=== PATIENT | female | born 1960 | race African-American/Black ===

== ENCOUNTER 2022-08-27 19:52 | Inpatient (IN) | payer MEDICAID, OTHER ==
[~2022-08-27] VITALS: Ht 167.6 cm; Wt 107.0 kg
[2022-08-27 21:57] LABS: HEMATOCRIT. 34.9 % (36.0-48.0); HEMOGLOBIN. 10.5 g/dL (12.0-16.0); MEAN CORPUSCULAR HEMOGLOBIN 27.3 pg (28.0-32.0); MEAN CORPUSCULAR VOLUME 91.1 fL (81.0-99.0); MEAN PLATELET VOLUME 8.5 fl (7.4-10.4); PLATELET 320 x1000/uL (130-400); RED BLOOD CELL COUNT 3.83 mill/uL (4.2-5.4); RED CELL DISTRIBUTION WIDTH 25.6 % (11.6-14.6)
[2022-08-27 22:05] LABS: CHLORIDE 107 mEq/L (98-107)
[2022-08-27] MEDS ORDERED: VANCOMYCIN 1G PREMIX 200 ML IV SCH (22:45)
[2022-08-27] MEDS ORDERED: SODIUM CHLORIDE 0.9% 1,000 ML IV ONE (22:45)
[2022-08-27] MEDS ORDERED: CEFTRIAXONE 1GM PREMIX 50 ML IV ONE (22:45)
[2022-08-28 02:37] LABS: PLATELET ESTIMATE NORMAL
[2022-08-28 04:00] VITALS: BP 105/60
[2022-08-28] MEDS ORDERED: ONDANSETRON HCL 4MG/2ML INJ IV PRN (05:00)
[2022-08-28] MEDS ORDERED: VANCOMYCIN 750MG PREMIX 150 ML IV SCH (06:00)
[2022-08-28 08:00] VITALS: BP 97/53
[2022-08-28] MEDS: PANTOPRAZOLE SODIUM 40 MG/VIAL IV SCH (08:15)
[2022-08-28] MEDS: PIPERACILLIN/TAZOBACTAM 3.375 G in DEXTROSE 5% WATER 50 ML IV SCH ×3 (08:15→21:36)
[2022-08-28 10:05] LABS: HEMATOCRIT. 30.6 % (36.0-48.0); HEMOGLOBIN. 9.5 g/dL (12.0-16.0); MEAN CORPUSCULAR HEMOGLOBIN 27.8 pg (28.0-32.0); MEAN CORPUSCULAR VOLUME 89.8 fL (81.0-99.0); MEAN PLATELET VOLUME 8.4 fl (7.4-10.4); PLATELET 265 x1000/uL (130-400); RED BLOOD CELL COUNT 3.41 mill/uL (4.2-5.4); RED CELL DISTRIBUTION WIDTH 25.5 % (11.6-14.6)
[2022-08-28 10:19] LABS: CHLORIDE 106 mEq/L (98-107)
[2022-08-28 12:00] VITALS: BP 99/50
[2022-08-28] MEDS ORDERED: MENTHOL/LANOLIN/CALAMINE/ZN OX OINT 71GM TOP PRN (12:00)
[2022-08-28] MEDS: POTASSIUM CHLORIDE INJ 40 MEQ in DEXT 5% WATER 250 ML IV NR ×2 (12:56→17:02)
[2022-08-28 15:04] LABS: NUCLEATED RED BLOOD CELLS 1 /100 WBC
[2022-08-28 15:05] LABS: PLATELET ESTIMATE NORMAL
[2022-08-28] MEDS ORDERED: FUROSEMIDE 40MG/4ML VIAL IVP NR (15:30)
[2022-08-28 16:00] VITALS: BP 134/81
[2022-08-28] MEDS ORDERED: ENOXAPARIN 40MG/0.4ML SYR SUBCUT SCH (16:00)
[2022-08-28] MEDS: VANCOMYCIN 750MG PREMIX 150 ML IV SCH (16:25)
[2022-08-28] MEDS: MORPHINE SULFATE 2 MG/ML CPJ (NOT FOR IM USE) IV PRN ×2 (16:35→21:35)
[2022-08-28] MEDS ORDERED: POTASSIUM CHLORIDE 20MEQ TABLET SR PO NR (17:15)
[2022-08-28 18:51] LABS: TOTAL IRON BINDING CAPACITY 115 ug/dL (250-450)
[2022-08-28 19:28] LABS: FERRITIN 4405 ng/mL (10-291)
[2022-08-28 19:43] LABS: VITAMIN B12 SERUM >2000 pg/mL pg/mL (211-911)
[2022-08-28 20:00] VITALS: BP 99/59
[2022-08-28 20:25] LABS: CLARITY URINE CLEAR (CLEAR); COLOR URINE DARK YELLOW (YELLOW); KETONES URINE NEGATIVE (NEGATIVE); LEUKOCYTE ESTERASE URINE NEGATIVE (NEGATIVE); NITRITE URINE NEGATIVE (NEGATIVE); OCCULT BLOOD URINE NEGATIVE (NEGATIVE); PH URINE 5.5 (4.5-8.0); PROTEIN URINE NEGATIVE (NEGATIVE); SPECIFIC GRAVITY URINE 1.017 (1.005-1.030); UROBILINOGEN URINE 0.2 E.U./dL (0.2-1.0)
[2022-08-28] MEDS: ALBUMIN HUMAN 25GM/100ML (25%) IV SCH (20:44)
[2022-08-28] MEDS ORDERED: IOHEXOL-300 100 ML BOTTLE ONE (22:09)
[2022-08-29] VITALS: BP 101/66
[2022-08-29 04:00] VITALS: BP 101/59
[2022-08-29] MEDS: VANCOMYCIN 750MG PREMIX 150 ML IV SCH (05:22)
[2022-08-29] MEDS: PIPERACILLIN/TAZOBACTAM 3.375 G in DEXTROSE 5% WATER 50 ML IV SCH ×3 (06:04→22:26)
[2022-08-29 08:00] VITALS: BP 97/55
[2022-08-29] MEDS: PANTOPRAZOLE SODIUM 40 MG/VIAL IV SCH (10:03)
[2022-08-29] MEDS: MORPHINE SULFATE 2 MG/ML CPJ (NOT FOR IM USE) IV PRN (10:07)
[2022-08-29 12:00] VITALS: BP 100/55
[2022-08-29 16:00] VITALS: BP 92/56
[2022-08-29 16:37] LABS: HEMATOCRIT. 29.6 % (36.0-48.0); MEAN CORPUSCULAR HEMOGLOBIN 27.3 pg (28.0-32.0); MEAN CORPUSCULAR VOLUME 89.9 fL (81.0-99.0); MEAN PLATELET VOLUME 8.5 fl (7.4-10.4); PLATELET 220 x1000/uL (130-400); RED BLOOD CELL COUNT 3.29 mill/uL (4.2-5.4); RED CELL DISTRIBUTION WIDTH 25.3 % (11.6-14.6)
[2022-08-29 16:44] LABS: INR 3.1; PROTHROMBIN TIME 30.8 sec (9.6-11.0)
[2022-08-29] MEDS ORDERED: MORPHINE SULFATE 2 MG/ML CPJ (NOT FOR IM USE) IV PRN (16:45)
[2022-08-29 16:57] LABS: CHLORIDE 107 mEq/L (98-107)
[2022-08-29 19:16] LABS: PLATELET ESTIMATE NORMAL
[2022-08-29 20:00] VITALS: BP 102/54
[2022-08-29] MEDS: ALBUMIN HUMAN 25GM/100ML (25%) IV SCH (20:46)
[2022-08-30] VITALS (11 sets, daily range): BP systolic 97–110; BP diastolic 48–70
[2022-08-30 02:59] LABS: HEMATOCRIT. 30.8 % (36.0-48.0); HEMOGLOBIN. 9.3 g/dL (12.0-16.0); MEAN CORPUSCULAR HEMOGLOBIN 27.7 pg (28.0-32.0); MEAN PLATELET VOLUME 8.5 fl (7.4-10.4); PLATELET 191 x1000/uL (130-400); RED BLOOD CELL COUNT 3.35 mill/uL (4.2-5.4); RED CELL DISTRIBUTION WIDTH 25.9 % (11.6-14.6)
[2022-08-30 03:10] LABS: CHLORIDE 108 mEq/L (98-107); INR 2.5; PROTHROMBIN TIME 25.1 sec (9.6-11.0)
[2022-08-30] MEDS: PIPERACILLIN/TAZOBACTAM 3.375 G in DEXTROSE 5% WATER 50 ML IV SCH ×3 (06:13→21:54)
[2022-08-30] MEDS: FOLIC ACID 1MG TABLET PO SCH (10:00)
[2022-08-30] MEDS ORDERED: NALOXONE HCL 0.4MG/ML VIAL IV PRN (12:00)
[2022-08-30 13:48] LABS: PLATELET ESTIMATE NORMAL
[2022-08-30] MEDS: PANTOPRAZOLE SODIUM 40 MG/VIAL IV SCH (16:28)
[2022-08-30] MEDS: FUROSEMIDE 40MG/4ML VIAL IVP SCH (16:28)
[2022-08-30 16:55] LABS: INR 2.4; PROTHROMBIN TIME 24.9 sec (9.6-11.0)
[2022-08-30] MEDS: ALBUMIN HUMAN 25GM/100ML (25%) IV SCH (20:00)
[2022-08-31] VITALS (12 sets, daily range): BP systolic 95–115; BP diastolic 49–80
[2022-08-31 08:25] LABS: HEMATOCRIT. 26.8 % (36.0-48.0); MEAN CORPUSCULAR HEMOGLOBIN 27.4 pg (28.0-32.0); MEAN CORPUSCULAR VOLUME 91.4 fL (81.0-99.0); MEAN PLATELET VOLUME 8.7 fl (7.4-10.4); PLATELET 165 x1000/uL (130-400); RED BLOOD CELL COUNT 2.93 mill/uL (4.2-5.4); RED CELL DISTRIBUTION WIDTH 24.6 % (11.6-14.6)
[2022-08-31 09:12] LABS: INR 1.9; PROTHROMBIN TIME 19.8 sec (9.6-11.0)
[2022-08-31 09:13] LABS: CHLORIDE 108 mEq/L (98-107)
[2022-08-31] MEDS: FUROSEMIDE 40MG/4ML VIAL IVP SCH (09:25)
[2022-08-31] MEDS: PANTOPRAZOLE SODIUM 40 MG/VIAL IV SCH (09:25)
[2022-08-31] MEDS: FOLIC ACID 1MG TABLET PO SCH (09:25)
[2022-08-31 09:35] LABS: PLATELET ESTIMATE NORMAL
[2022-08-31] MEDS ORDERED: IOHEXOL-300 50 ML BOTTLE IV ONE ×2 (11:16→12:39)
[2022-08-31] MEDS ORDERED: LIDOCAINE HCL 1% 10 MG/ML 10ML VIAL ONE ×2 (11:16→11:23)
[2022-08-31] MEDS ORDERED: DEXAMETHASONE 4MG/ML 1ML VIAL ONE (11:23)
[2022-08-31] MEDS ORDERED: MIDAZOLAM HCL 2 MG/2 ML VIAL ONE (11:24)
[2022-08-31] MEDS ORDERED: PROPOFOL 200MG/20ML VIAL IV ONE (11:24)
[2022-08-31] MEDS ORDERED: FENTANYL CITRATE/PF 50MCG/ML 2ML VIAL ONE (11:24)
[2022-08-31] MEDS ORDERED: LABETALOL 5MG/ML SYR 20 MG/4 ML SYRINGE IV PRN ×2 (11:45→12:45)
[2022-08-31] MEDS ORDERED: HYDROMORPHONE HCL/PF 2MG/ML CPJ IV PRN ×2 (11:45→12:45)
[2022-08-31] MEDS ORDERED: MEPERIDINE HCL/PF 25MG/ML CPJ IV PRN ×2 (11:45→12:45)
[2022-08-31] MEDS ORDERED: ONDANSETRON HCL 4MG/2ML INJ IV PRN ×2 (11:45→12:45)
[2022-08-31] MEDS ORDERED: ROCURONIUM BROMIDE 10MG/ML VIAL 5ML IV ONE (12:07)
[2022-08-31] MEDS ORDERED: GLYCOPYRROLATE 0.2 MG/ML 2ML VIAL ONE ×2 (12:50)
[2022-08-31] MEDS ORDERED: NEOSTIGMINE METHYLSULFATE 1MG/ML 10 ML VIAL ONE (12:50)
[2022-08-31] MEDS ORDERED: LABETALOL HCL 5MG/ML VIAL 20ML IV ONE (13:13)
[2022-08-31 15:36] LABS: PARTIAL THROMBOPLASTIN TIME 36.6 sec (23.4-31.0); PROTHROMBIN TIME 20.3 sec (9.6-11.0)
[2022-08-31] MEDS: ENOXAPARIN 30MG/0.3ML SYR SUBCUT SCH (17:52)
[2022-08-31] MEDS: FUROSEMIDE 40MG/4ML VIAL IV SCH (17:56)
[2022-08-31] MEDS: PIPERACILLIN/TAZOBACTAM 3.375 G in DEXTROSE 5% WATER 50 ML IV SCH (22:42)
[2022-09-01] VITALS: BP 98/50
[2022-09-01 04:00] VITALS: BP 111/59
[2022-09-01] MEDS: PIPERACILLIN/TAZOBACTAM 3.375 G in DEXTROSE 5% WATER 50 ML IV SCH ×3 (06:30→22:03)
[2022-09-01] MEDS: ENOXAPARIN 30MG/0.3ML SYR SUBCUT SCH ×2 (06:31→17:37)
[2022-09-01] MEDS: MORPHINE SULFATE 2 MG/ML CPJ (NOT FOR IM USE) IV PRN ×2 (06:44→19:44)
[2022-09-01 07:22] LABS: HEMATOCRIT. 32.2 % (36.0-48.0); MEAN CORPUSCULAR HEMOGLOBIN 28.2 pg (28.0-32.0); MEAN CORPUSCULAR VOLUME 90.7 fL (81.0-99.0); MEAN PLATELET VOLUME 9.1 fl (7.4-10.4); PLATELET 195 x1000/uL (130-400); RED BLOOD CELL COUNT 3.55 mill/uL (4.2-5.4)
[2022-09-01 08:00] VITALS: BP 109/53
[2022-09-01 08:30] LABS: CHLORIDE 107 mEq/L (98-107)
[2022-09-01] MEDS: PANTOPRAZOLE SODIUM 40 MG/VIAL IV SCH (09:23)
[2022-09-01] MEDS: FUROSEMIDE 40MG/4ML VIAL IV SCH ×2 (09:23→17:37)
[2022-09-01] MEDS: FOLIC ACID 1MG TABLET PO SCH (09:23)
[2022-09-01] MEDS ORDERED: POTASSIUM CHLORIDE 20MEQ/PACKET PO SCH (10:30)
[2022-09-01 12:00] VITALS: BP 103/62
[2022-09-01 16:00] VITALS: BP 108/55
[2022-09-01 17:38] LABS: PLATELET ESTIMATE NORMAL
[2022-09-01 20:00] VITALS: BP 102/57
[2022-09-02] VITALS: BP 102/62
[2022-09-02 04:00] VITALS: BP 114/62
[2022-09-02] MEDS: PIPERACILLIN/TAZOBACTAM 3.375 G in DEXTROSE 5% WATER 50 ML IV SCH ×2 (05:16→15:07)
[2022-09-02] MEDS: ENOXAPARIN 30MG/0.3ML SYR SUBCUT SCH ×2 (05:16→16:50)
[2022-09-02 07:06] LABS: HEMATOCRIT. 31.5 % (36.0-48.0); MEAN CORPUSCULAR HEMOGLOBIN 28.3 pg (28.0-32.0); MEAN CORPUSCULAR VOLUME 89.2 fL (81.0-99.0); MEAN PLATELET VOLUME 9.1 fl (7.4-10.4); PLATELET 181 x1000/uL (130-400); RED BLOOD CELL COUNT 3.53 mill/uL (4.2-5.4); RED CELL DISTRIBUTION WIDTH 23.8 % (11.6-14.6)
[2022-09-02 07:46] LABS: CHLORIDE 108 mEq/L (98-107)
[2022-09-02 08:00] VITALS: BP 97/52
[2022-09-02] MEDS: FOLIC ACID 1MG TABLET PO SCH (09:02)
[2022-09-02] MEDS: PANTOPRAZOLE SODIUM 40 MG/VIAL IV SCH (09:02)
[2022-09-02] MEDS: HYDROCODONE/ACETAMINOPHEN 10/325MG TABLET PO PRN (09:02)
[2022-09-02] MEDS: FUROSEMIDE 40MG/4ML VIAL IV SCH ×2 (09:02→16:50)
[2022-09-02 09:53] LABS: NUCLEATED RED BLOOD CELLS 1 /100 WBC; PLATELET ESTIMATE NORMAL
[2022-09-02 12:00] VITALS: BP 108/61
[2022-09-02 16:00] VITALS: BP 110/63
[2022-09-02] MEDS: MEROPENEM-0.9% SODIUM CHLORIDE 100 ML IV SCH (19:56)
[2022-09-02 20:00] VITALS: BP 90/57
[2022-09-03] VITALS: BP 95/51
[2022-09-03] MEDS: MEROPENEM-0.9% SODIUM CHLORIDE 100 ML IV SCH ×3 (03:05→18:20)
[2022-09-03] MEDS: HYDROCODONE/ACETAMINOPHEN 10/325MG TABLET PO PRN (03:35)
[2022-09-03 04:00] VITALS: BP 102/60
[2022-09-03] MEDS: ENOXAPARIN 30MG/0.3ML SYR SUBCUT SCH ×2 (05:19→17:51)
[2022-09-03 06:44] LABS: HEMATOCRIT. 32.7 % (36.0-48.0); HEMOGLOBIN. 10.2 g/dL (12.0-16.0); MEAN CORPUSCULAR VOLUME 89.8 fL (81.0-99.0); MEAN PLATELET VOLUME 9.2 fl (7.4-10.4); PLATELET 170 x1000/uL (130-400); RED BLOOD CELL COUNT 3.65 mill/uL (4.2-5.4); RED CELL DISTRIBUTION WIDTH 23.7 % (11.6-14.6)
[2022-09-03 06:46] LABS: INR 2.6; PROTHROMBIN TIME 26.6 sec (9.6-11.0)
[2022-09-03 07:09] LABS: CHLORIDE 107 mEq/L (98-107)
[2022-09-03 08:00] VITALS: BP 98/48
[2022-09-03] MEDS: PANTOPRAZOLE SODIUM 40 MG/VIAL IV SCH (08:42)
[2022-09-03] MEDS: FOLIC ACID 1MG TABLET PO SCH (08:42)
[2022-09-03] MEDS: FUROSEMIDE 40MG/4ML VIAL IV SCH ×2 (08:42→17:50)
[2022-09-03] MEDS ORDERED: POTASSIUM CHLORIDE 20MEQ TABLET SR PO NR (09:30)
[2022-09-03 11:44] LABS: PLATELET ESTIMATE NORMAL
[2022-09-03 12:00] VITALS: BP 97/49
[2022-09-03 16:00] VITALS: BP 98/53
[2022-09-03 20:00] VITALS: BP 93/52
[2022-09-04] VITALS: BP 108/66
[2022-09-04] MEDS: MEROPENEM-0.9% SODIUM CHLORIDE 100 ML IV SCH ×2 (02:25→11:21)
[2022-09-04 04:00] VITALS: BP 99/51
[2022-09-04] MEDS: ENOXAPARIN 30MG/0.3ML SYR SUBCUT SCH ×2 (06:29→17:30)
[2022-09-04 07:20] LABS: HEMATOCRIT. 35.4 % (36.0-48.0); HEMOGLOBIN. 10.7 g/dL (12.0-16.0); MEAN CORPUSCULAR HEMOGLOBIN 28.6 pg (28.0-32.0); MEAN CORPUSCULAR VOLUME 94.7 fL (81.0-99.0); MEAN PLATELET VOLUME 9.6 fl (7.4-10.4); PLATELET 160 x1000/uL (130-400); RED BLOOD CELL COUNT 3.74 mill/uL (4.2-5.4); RED CELL DISTRIBUTION WIDTH 24.5 % (11.6-14.6)
[2022-09-04 08:00] VITALS: BP 110/61
[2022-09-04 09:49] LABS: PLATELET ESTIMATE NORMAL
[2022-09-04] MEDS: PANTOPRAZOLE SODIUM 40 MG/VIAL IV SCH (09:50)
[2022-09-04] MEDS: FUROSEMIDE 40MG/4ML VIAL IV SCH ×2 (09:50→17:28)
[2022-09-04] MEDS: FOLIC ACID 1MG TABLET PO SCH (09:50)
[2022-09-04 10:12] LABS: CHLORIDE 108 mEq/L (98-107)
[2022-09-04 12:00] VITALS: BP 95/60
[2022-09-04 16:00] VITALS: BP 102/57
[2022-09-05] VITALS: BP 103/59
[2022-09-05] MEDS: MEROPENEM-0.9% SODIUM CHLORIDE 100 ML IV SCH ×2 (02:31→10:24)
[2022-09-05] MEDS: ENOXAPARIN 30MG/0.3ML SYR SUBCUT SCH ×2 (06:36→18:25)
[2022-09-05 07:10] LABS: HEMOGLOBIN. 9.9 g/dL (12.0-16.0); MEAN CORPUSCULAR HEMOGLOBIN 27.9 pg (28.0-32.0); MEAN CORPUSCULAR VOLUME 90.8 fL (81.0-99.0); MEAN PLATELET VOLUME 9.5 fl (7.4-10.4); PLATELET 179 x1000/uL (130-400); RED BLOOD CELL COUNT 3.53 mill/uL (4.2-5.4); RED CELL DISTRIBUTION WIDTH 24.3 % (11.6-14.6)
[2022-09-05 07:17] LABS: CHLORIDE 107 mEq/L (98-107)
[2022-09-05 08:00] VITALS: BP 110/53
[2022-09-05] MEDS ORDERED: POTASSIUM CHLORIDE 20MEQ TABLET SR PO SCH (10:15)
[2022-09-05] MEDS: FUROSEMIDE 40MG/4ML VIAL IV SCH (10:21)
[2022-09-05] MEDS: FOLIC ACID 1MG TABLET PO SCH (10:23)
[2022-09-05] MEDS: PANTOPRAZOLE SODIUM 40 MG/VIAL IV SCH (10:24)
[2022-09-05] MEDS ORDERED: MEROPENEM 1,000 MG in SODIUM CHLORIDE 0.9% 50 ML IV SCH (10:45)
[2022-09-05 12:00] VITALS: BP 99/62
[2022-09-05] MEDS ORDERED: LACTULOSE 20G/30ML UDC PO PRN (12:45)
[2022-09-05 12:55] LABS: PLATELET ESTIMATE NORMAL
[2022-09-05] MEDS: DOCUSATE SODIUM 250MG CAPSULE PO SCH (13:38)
[2022-09-05 16:00] VITALS: BP 112/59
[2022-09-05] MEDS ORDERED: NALOXONE HCL 0.4MG/ML VIAL IV PRN (18:15)
[2022-09-05] MEDS: MEROPENEM-0.9% SODIUM CHLORIDE 50 ML IV SCH (18:26)
[2022-09-05 20:00] VITALS: BP 104/59
[2022-09-06] VITALS: BP 107/63
[2022-09-06] MEDS: MEROPENEM-0.9% SODIUM CHLORIDE 50 ML IV SCH ×3 (02:43→17:53)
[2022-09-06 04:00] VITALS: BP 110/53
[2022-09-06] MEDS: ENOXAPARIN 30MG/0.3ML SYR SUBCUT SCH ×2 (06:00→17:53)
[2022-09-06 07:01] LABS: HEMATOCRIT. 33.1 % (36.0-48.0); HEMOGLOBIN. 10.5 g/dL (12.0-16.0); MEAN CORPUSCULAR HEMOGLOBIN 28.3 pg (28.0-32.0); MEAN CORPUSCULAR VOLUME 89.1 fL (81.0-99.0); MEAN PLATELET VOLUME 9.5 fl (7.4-10.4); PLATELET 182 x1000/uL (130-400); RED BLOOD CELL COUNT 3.71 mill/uL (4.2-5.4); RED CELL DISTRIBUTION WIDTH 24.2 % (11.6-14.6)
[2022-09-06 07:06] LABS: INR 2.5; PROTHROMBIN TIME 25.3 sec (9.6-11.0)
[2022-09-06 07:24] LABS: CHLORIDE 108 mEq/L (98-107)
[2022-09-06] MEDS: HYDROCODONE/ACETAMINOPHEN 5/325MG TABLET PO PRN ×2 (07:41→22:14)
[2022-09-06 08:00] VITALS: BP 97/50
[2022-09-06] MEDS: PANTOPRAZOLE SODIUM 40 MG/VIAL IV SCH (09:50)
[2022-09-06] MEDS: FOLIC ACID 1MG TABLET PO SCH (09:50)
[2022-09-06] MEDS: FUROSEMIDE 40MG TABLET PO SCH (09:50)
[2022-09-06] MEDS: DOCUSATE SODIUM 250MG CAPSULE PO SCH (09:50)
[2022-09-06] MEDS ORDERED: POTASSIUM CHLORIDE 20MEQ TABLET SR PO NR (11:30)
[2022-09-06 11:56] VITALS: BP 96/54
[2022-09-06 16:00] VITALS: BP 102/61
[2022-09-06 20:00] VITALS: BP 106/64
[2022-09-06 21:12] LABS: PLATELET ESTIMATE NORMAL
[2022-09-07] VITALS: BP 108/68
[2022-09-07] MEDS: MEROPENEM-0.9% SODIUM CHLORIDE 50 ML IV SCH ×2 (02:51→10:19)
[2022-09-07 04:00] VITALS: BP 108/62
[2022-09-07 07:17] LABS: HEMATOCRIT. 40.2 % (36.0-48.0); HEMOGLOBIN. 12.5 g/dL (12.0-16.0); MEAN CORPUSCULAR HEMOGLOBIN 28.5 pg (28.0-32.0); MEAN CORPUSCULAR VOLUME 91.6 fL (81.0-99.0); MEAN PLATELET VOLUME 10.1 fl (7.4-10.4); PLATELET 180 x1000/uL (130-400); RED BLOOD CELL COUNT 4.39 mill/uL (4.2-5.4); RED CELL DISTRIBUTION WIDTH 24.7 % (11.6-14.6)
[2022-09-07 08:00] VITALS: BP 111/57
[2022-09-07] MEDS: DOCUSATE SODIUM 250MG CAPSULE PO SCH (09:00)
[2022-09-07 09:23] LABS: CHLORIDE 104 mEq/L (98-107)
[2022-09-07] MEDS: FOLIC ACID 1MG TABLET PO SCH (10:18)
[2022-09-07] MEDS: FUROSEMIDE 40MG TABLET PO SCH (10:18)
[2022-09-07] MEDS: PHENYLEPHRINE/SHK LV/MO/PET RECTAL OINTMENT 57GM PR SCH ×3 (10:19→12:00)
[2022-09-07] MEDS: PANTOPRAZOLE SODIUM 40 MG/VIAL IV SCH (10:19)
[2022-09-07 10:42] LABS: PROTHROMBIN TIME 30.5 sec (9.6-11.0)
[2022-09-07 12:00] VITALS: BP 103/50
[2022-09-07 12:49] VITALS: BP 103/57
[2022-09-07] MEDS: HYDROCODONE/ACETAMINOPHEN 5/325MG TABLET PO PRN (13:10)
[2022-09-07 20:03] LABS: PLATELET ESTIMATE NORMAL
== END 2022-09-07 15:35 | DRG 720 ==
LOC: ER 19:52 → 7EST 08-28 01:55 → EDBEDREQTM 08-28 02:28 → EDBEDREQ 08-28 02:28 → ENRESERV 08-28 03:17 → ER 08-28 03:33 → 7WST 08-28 04:11 → 6EST 09-03 15:00
PROVIDERS: ADMIT Internal Medicine; ATTEND Internal Medicine
PROC: 30233K1 Transfusion of Nonautologous Frozen Plasma into Peripheral Vein, Percutaneous Approach (ICD-10-PCS; 2022-08-30)
PROC: BF101ZZ Fluoroscopy of Bile Ducts using Low Osmolar Contrast (ICD-10-PCS; principal; 2022-08-31)
PROC: 0F9930Z Drainage of Common Bile Duct with Drainage Device, Percutaneous Approach (ICD-10-PCS; 2022-08-31)
DX: A41.9 Sepsis, unspecified organism (principal); E43 Unspecified severe protein-calorie malnutrition; E87.20 Acidosis, unspecified; D68.9 Coagulation defect, unspecified; J90 Pleural effusion, not elsewhere classified; K83.09 Other cholangitis; C23 Malignant neoplasm of gallbladder; C78.7 Secondary malignant neoplasm of liver and intrahepatic bile duct; C78.00 Secondary malignant neoplasm of unspecified lung; D50.9 Iron deficiency anemia, unspecified; E66.9 Obesity, unspecified; K76.9 Liver disease, unspecified; Z68.38 Body mass index [BMI] 38.0-38.9, adult; R18.8 Other ascites; Z20.822 Contact with and (suspected) exposure to COVID-19; E87.6 Hypokalemia; E87.70 Fluid overload, unspecified; K59.00 Constipation, unspecified
CPT/HCPCS: 31500; 36415; 47534; 71045; 71260; 74177; 76705; 80048; 80053; 80076; 80202; 81003; 82140; 82248; 82607; 82728; 82746; 82962; 83540; 83550; 83605; 83880; 84145; 84484; 85025; 86850; 86900; 86927; 87426; 93005; 93970; 97110; 97162; 97164; 97166; 99291; A6261; C1725; C1729; C1769; C1893; C9113; J0696; J1100; J1650; J1940; J2185; J2250; J2270; J2543; J2704; J2710; J3010; J3370; J3480; J3490; J7030; J7060; P9017; P9047; Q9967